=== PATIENT | male | born 1970 | race Caucasian/White ===

== ENCOUNTER → 2019-03-28 | Day surgery (SDC) | payer OTHER ==
[~2019-03-28] MED LIST: DIATRIZOATE MEGL/DIATRIZOA SOD 30 ML BTL PO ONE; ELIQUIS5 MG PO; FENTANYL CITRATE/PF 100MCG/2 ML INJ ONE; IOPAMIDOL 370 MG/ML 200 ML INFUS..BTL INJ ONE; METOCLOPRAMIDE HCL 10 MG/2ML VIAL ONE; MIDAZOLAM HCL 2 MG/2 ML VIAL ONE; MULTIVITAMINS1 EAC7 PO; PANTOPRAZOLE 40 MG 10ML VIAL ONE; PROPOFOL IV EMULSION 10 MG/ML 50 ML VIAL ONE; SODIUM CHLORIDE 0.9% 50ML 50 ML ONE; VITAMIN C500 M2 PO; iron PO
[2019-03-28 08:54] VITALS: BP 104/69
[2019-03-28 09:55] LABS: ANION GAP 10.6 mmol/L (8-16); BLOOD UREA NITROGEN 10 mg/dL (7-26); BUN/CREATININE RATIO 15 (6-25); CALCIUM 8.7 mg/dL (8.4-10.2); CARBON DIOXIDE 25 mmol/L (22-29); CHLORIDE 108 mmol/L (98-107); CREATININE, SERUM 0.67 mg/dL (0.72-1.25); EST GLOMERULAR FILTRATION RATE > 60 ML/MIN (60-); GLUCOSE 83 mg/dL (74-118); POTASSIUM 3.6 mmol/L (3.5-5.1); SODIUM 140 mmol/L (136-145)
--- NOTE | 2019-03-28 10:46 | Diagnostic Imaging Report ---
EXAM: CT Abdomen and Pelvis WITH intravenous contrast INDICATION: Anemia COMPARISON: None. TECHNIQUE: Abdomen and pelvis were scanned utilizing a multidetector helical scanner from the lung base to the pubic symphysis after administration of IV contrast. Coronal and sagittal reformations were obtained. Routine protocol was performed. Scan was performed during portal venous phase. IV CONTRAST: 100mL of Isovue 370 ORAL CONTRAST: Gastrografin RADIATION DOSE: Total DLP: 704.9 mGy*cm Dose modulation, iterative reconstruction, and/or weight based adjustment of the mA/kV was utilized to reduce the radiation dose to as low as reasonably achievable. FINDINGS: LOWER THORAX: Normal. HEPATOBILIARY: No focal hepatic lesions. No biliary ductal dilatation. The gallbladder appears unremarkable. SPLEEN: No splenomegaly. PANCREAS: No focal masses or ductal dilatation. ADRENALS: No adrenal nodules. KIDNEYS/URETERS: No hydronephrosis, stones, or solid mass lesions. Bilateral simple renal cysts. PELVIC ORGANS/BLADDER: Unremarkable. PERITONEUM / RETROPERITONEUM: No free air or fluid. LYMPH NODES: No lymphadenopathy. VESSELS: Unremarkable. GI TRACT: Postoperative findings of prior gastrectomy. No abnormal bowel thickening. No bowel obstruction. BONES AND SOFT TISSUES: Unremarkable. IMPRESSION: No acute findings in the abdomen or pelvis. Signed by: Vincent Gerber MD on 03/28/2019 10:43 AM
--- NOTE | 2019-04-18 07:41 | Operative Report ---
DATE OF PROCEDURE: 03/28/2019 SURGEON: Deangelo Quinonez MD PROCEDURE PERFORMED: Esophagogastroduodenoscopy with biopsies. REFERRING PHYSICIAN: Franky Dill MD INDICATIONS FOR PROCEDURES: Iron deficiency anemia. Colonoscopy was relatively unremarkable. MEDICATIONS: The patient was done under MAC. Please see anesthesiologist's note. PROCEDURE IN DETAIL: With the patient in left lateral decubitus position, flexible fiberoptic Olympus gastroscope was introduced into the esophagus under direct visualization without any difficulty. There was some patchy intense erythema noted in the distal esophagus as well as salmon colored mucosa suspicious for Dc's and biopsies were obtained. An approximately 1.5 cm raised friable area was noted at the GE junction and that was biopsied. In addition, there was a large ulcer with somewhat heaped up margins that was adjacent to the raised area and there were no active bleeding or stigmata of recent hemorrhage. The scope was then advanced with ease into the stomach traversing a small hiatal hernia. The patient is status post gastric sleeve. The overlying mucosa of the antrum and the body revealed some diffuse erythema and [id number] edema and biopsies were obtained and sent to stain for H. pylori. Pylorus was of normal with contour and shape, was intubated with ease and the scope was advanced all the way to the second portion of the duodenum. Biopsies were obtained from the second portion as well as from the duodenal bulb to rule out sprue. The scope was then withdrawn back into the stomach and retroflexed. Postoperative changes were noted in the retroflexed position. The scope was then straightened out. It was subsequently withdrawn. The patient tolerated the procedure well. IMPRESSION: 1. Distal esophagitis. 2. Rule out Cd esophagus. 3. Approximately 1.5 cm raised friable area. GE junction biopsied. 4. A large ulcer adjacent to the aforementioned raised area was noted at the GE junction there was no active bleeding or stigmata of recent hemorrhage. 5. Hiatal hernia. 6. Status post gastric sleeve. 7. Rule out sprue. PLAN: Followup histology. Initiate Protonix 40 mg 1 p.o. a.c. b.i.d. The patient will need an EUS to evaluate the aforementioned raised nodular area at the GE junction and would need electively repeat EGD to delineate after all the inflammatory changes resolve to delineate the length of the Dc's esophagus and obtain appropriate four quadrants at 1 cm interval biopsies. Deangelo Quinonez MD [facility] [place][id number] cc: Franky Dill MD
== END | disposition home or self-care (01) ==
LOC: OR 06:45
PROVIDERS: ATTEND Internal Medicine Gastroenterology
DX: D50.9 Iron deficiency anemia, unspecified (principal); K31.7 Polyp of stomach and duodenum; K28.9 Gastrojejunal ulcer, unspecified as acute or chronic, without hemorrhage or perforation; K22.8 Other specified diseases of esophagus; K20.9 Esophagitis, unspecified; K44.9 Diaphragmatic hernia without obstruction or gangrene; Z98.84 Bariatric surgery status; G47.33 Obstructive sleep apnea (adult) (pediatric); I25.10 Atherosclerotic heart disease of native coronary artery without angina pectoris; I48.91 Unspecified atrial fibrillation; I83.90 Asymptomatic varicose veins of unspecified lower extremity; Z88.6 Allergy status to analgesic agent; Z79.02 Long term (current) use of antithrombotics/antiplatelets
CPT/HCPCS: 36415; 43239; 74177; 80048; C9113; J2250; J2704; J2765; J3010; Q9967

== ENCOUNTER → 2019-08-22 | Outpatient (CLI) | payer OTHER ==
[~2019-08-22] MED LIST changes: -DIATRIZOATE MEGL/DIATRIZOA SOD 30 ML BTL PO ONE; -FENTANYL CITRATE/PF 100MCG/2 ML INJ ONE; -IOPAMIDOL 370 MG/ML 200 ML INFUS..BTL INJ ONE; -METOCLOPRAMIDE HCL 10 MG/2ML VIAL ONE; -MIDAZOLAM HCL 2 MG/2 ML VIAL ONE; -PANTOPRAZOLE 40 MG 10ML VIAL ONE; -PROPOFOL IV EMULSION 10 MG/ML 50 ML VIAL ONE; -SODIUM CHLORIDE 0.9% 50ML 50 ML ONE
--- NOTE | 2019-08-22 09:51 | Diagnostic Imaging Report ---
EXAM: CT Chest WITHOUT contrast INDICATION: ^[id number] ^[id number] ^AFIB/REFLUX DZ/NODULE OF LUNG/APNEA COMPARISON: CT chest 03/29/2019 TECHNIQUE: Chest was scanned utilizing a multidetector helical scanner from the lung apex through the level of the adrenal glands without administration of IV contrast. Absence of intravenous contrast decreases sensitivity for detection of lymphadenopathy and vascular pathology. Coronal and sagittal reformations were obtained. Routine protocol was performed. IV CONTRAST: None COMPLICATIONS: None RADIATION DOSE: Total DLP: 580 mGy*cm Estimated effective dose: (DLP x 0.014 x size factor) mSv CTDIvol has been reviewed. It is below the limits set by the Radiation Protocol Committee (RPC). Dose modulation, iterative reconstruction, and/or weight based adjustment of the mA/kV was utilized to reduce the radiation dose to as low as reasonably achievable. FINDINGS: LINES/ TUBES: None. LUNGS AND AIRWAYS: The previously described right lung groundglass pulmonary nodules are no longer identified. No concerning pulmonary mass, nodule, or consolidation. PLEURA: The pleural spaces are clear. HEART AND MEDIASTINUM: Normal heart size. No pericardial effusion. No gross thoracic adenopathy when allowing for lack of intravenous contrast. Gastroesophageal surgical change with a small hiatal hernia and stable mild distal esophageal wall thickening. UPPER ABDOMEN: Grossly unremarkable. BONES: No acute osseous abnormality. SOFT TISSUES: Unremarkable. IMPRESSION: 1. Interval resolution of the previously seen right lung nodules. No concerning pulmonary mass or nodule is identified on today's examination. 2. Unchanged small hiatal hernia with mild distal esophageal wall thickening. No identifiable esophageal mass. Signed by: Bebeto Matias MD on 08/22/2019 9:48 AM
== END ==
LOC: CT 08:56
PROVIDERS: ATTEND Internal Medicine Critical Care Medicine
DX: I48.91 Unspecified atrial fibrillation (principal); J98.4 Other disorders of lung; K21.9 Gastro-esophageal reflux disease without esophagitis; G47.33 Obstructive sleep apnea (adult) (pediatric); E66.9 Obesity, unspecified
CPT/HCPCS: 71250